=== PATIENT | male | born 1990 | race African-American/Black ===

== ENCOUNTER 2020-08-28 22:59 | Emergency (ER) | payer MEDICAID ==
[~2020-08-28] VITALS: Ht 188 cm; Wt 74.8 kg
--- NOTE | 2020-08-28 23:00 | NUR ---
ED Nurse Note: ERMD at bedside
[2020-08-28 23:07] VITALS: BP 115/67
--- NOTE | 2020-08-28 23:08 | NUR ---
ED Nurse Note: walked in to ed c/o urinary burning sensation onset this morning. denies any penile discharge. vss, nad, aaox4, ambulatory, urine collected and sent to lab
[2020-08-28 23:31] LABS: APPEARANCE,URINE CLEAR; BILIRUBIN, URINE NEGATIVE (NEGATIVE); COLOR,URINE PALE YELLOW; GLUCOSE, URINE (UA) NEGATIVE (NEGATIVE); KETONES,URINE NEGATIVE (NEGATIVE); LEUKOCYTE ESTERASE ,URINE NEGATIVE (NEGATIVE); NITRITE,URINE NEGATIVE (NEGATIVE); PH,URINE 6.5 (4.5-8.0); PROTEIN,URINE NEGATIVE (NEGATIVE); UROBILINOGEN,URINE 1 MG/DL (0.0-1.0)
[2020-08-28] MEDS ORDERED: Lidocaine 1% MPF 10mg/ml 5ml INJ ONE (23:45)
--- NOTE | 2020-08-28 23:45 | Emergency Room Report ---
History of Present Illness General Chief Complaint: Male Urogenital Problems Source: Patient Present Illness HPI Patient is a 29-year-old male presents for increased burning with urination started this morning. Denies any hematuria. Reports having recent unprotected sex. Thinks he might have STD exposure. Denies any discharge. Denies any genital lesions. Had no vomiting or diarrhea. Denies any eye complaints. Denies taking any medications regularly. Denies testicular swelling or pain. Allergies: Coded Allergies: No Known Allergies (Unverified , 08/28/20) COVID-19 Screening Contact w/high risk pt: No Experienced COVID-19 symptoms?: No COVID-19 Testing performed COMPUTER AIDED DESIGN DESIGNER: No Patient History Past Medical History: see triage record Reviewed Nursing Documentation: PMH: Agreed; PSxH: Agreed Nursing Documentation-PMH Past Medical History: No Stated History Review of Systems All Other Systems: negative except mentioned in HPI Physical Exam Vital Signs Date Time Temp Pulse Resp B/P (MAP) Pulse Ox O2 Delivery O2 Flow Rate FiO2 08/28/20 23:04 98.1 75 16 116/70 (85) 99 Room Air General Appearance: well appearing, no apparent distress, alert, GCS 15, non- toxic Head: normocephalic, atraumatic ENT: hearing grossly normal, normal voice Neck: full range of motion, supple Respiratory: no respiratory distress, speaking full sentences Cardiovascular #1: normal inspection Gastrointestinal: normal inspection Musculoskeletal: no calf tenderness Neurologic: normal gait Psychiatric: mood/affect normal Skin: no rash Medical Decision Making Diagnostic Impression: Primary Impression: Urethritis, nonspecific ER Course Patient presented for dysuria. Differential diagnosis include was not limited to urinary tract infection, urethritis, Katheryn's syndrome among others. Patient has a benign exam and does not appear to require any imaging or laboratory testing at this time. Patient presents after reported unprotected sex with symptoms consistent with a sexual transmitted disease. Patient was given IM Rocephin as well as prescription for doxycycline. He was advised to follow-up with outpatient STD testing. He was advised to return if worse. This medical record is generated with [employer] director recreation software. There may be some director recreation discrepancies related to use of this software Last Vital Signs Date Time Temp Pulse Resp B/P (MAP) Pulse Ox O2 Delivery O2 Flow Rate FiO2 08/28/20 23:07 98.2 77 16 115/67 99 Room Air Status: improved Disposition: HOME, SELF-CARE Condition: Stable Frandy Rivera MD Aug 28, 2020 23:45
[2020-08-28] MEDS ORDERED: DOXYCYCLINE MO100 MG ORAL (23:46)
[2020-08-28 23:56] VITALS: BP 115/67
--- NOTE | 2020-08-28 23:56 | NUR ---
ER DISCHARGE NOTE: Patient is cleared to be discharged per ERMD, pt is aox4, on room air, with stable vital signs. pt was given dc and prescription instructions, pt was able to verbalize understanding, pt id band removed. pt is able to ambulate with steady gait. pt took all belongings.
== END 2020-08-28 23:58 | disposition home or self-care (01) ==
LOC: EMR 23:44
DX: N34.2 Other urethritis (principal)
CPT/HCPCS: 81003; 96372; 96374; J0696; Z7502; 99283